=== PATIENT | male | born 1945 | race Caucasian/White ===

== ENCOUNTER → 2017-03-06 | Day surgery (SDC) | payer OTHER, BC ==
[2017-02-06 12:38] VITALS: Ht 175.3 cm; Wt 83.2 kg
[~2017-03-06] VITALS: Ht 175.3 cm; Wt 83.2 kg
[~2017-03-06] MED LIST: 500ML BSS 0.3ML EPI 1:1000PF IRRIG ONE; ACETAMINOPHEN 325 MG TAB PO PRN; AMVISC PLUS 0.8ML SYRINGE INT OCU ONE; ASPI-461 PO; ATOR-54 PO; ATROPINE SULFATE 0.1 MG/ML 5ML SYR IV PRN; BRIMONIDINE TART 0.2% OP SOLN PER DROP CHARGE ONE; BSS FLUSH ONE; CARV6.25 PO; ENDOCOAT 0.85ML SYRINGE INT OCU ONE; EpHEDrine SULFATE INJ 50 MG/ML AMP IV PRN; EpINEphrine INJ 1MG/ML AMP 1 MG/ML AMP ONE; IMDSR/30 PO; LACTATED RINGER'S 1000ML 500 ML IV SCH; LEVO100T PO; LIDOCAINE 4% OP SOLN DROP CHARGE ONE; LIDOCAINE 4% OP SOLN DROP CHARGE OPR SCH; LIDOCAINE HCL 1% MPF 2 ML VIAL ONE; MIDAZOLAM HCL 1 MG/ML 2ML VIAL ONE; MOXIFLOXACIN OPH SOLN PER DROP CHARGE ONE; MULT-351 PO; MULTCAP33 PO; NITR0.4S UT; OMEG120013 PO; ONDANSETRON INJ 2 MG/ML 2 ML VIAL IV PRN; POVIDONE-IODINE OP SOLN 30 ML BTL ONE; PROPARACAINE 0.5% OP SOLN PER DROP CHARGE OPR SCH; PROPARACAINE HCL 0.5% OP SOLN 15 ML BTL OPR ONE; TOBRAMYCIN/DEXAMETHASONE OPH OINT PER APPLN CHARGE ONE
[2017-03-06] MEDS: PHENYLEPHRINE HCL 2.5% OP SOLN PER DROP CHARGE OPR SCH ×2 (09:57→10:02)
[2017-03-06] MEDS: TROPICAMIDE 1% OP SOLN PER DROP CHARGE OPR SCH ×2 (09:58→10:03)
[2017-03-06] MEDS: CYCLOPENTOLATE HCL 1% OP SOLN PER DROP CHARGE OPR SCH ×2 (09:59→10:04)
[2017-03-06] MEDS: KETOROLAC 0.5% OP SOLN PER DROP CHARGE OPR SCH ×2 (10:00→10:05)
[2017-03-06] MEDS: MOXIFLOXACIN OPH SOLN PER DROP CHARGE OPR SCH ×2 (10:01→10:15)
--- NOTE | 2017-03-06 10:33 | History & Physical Bridge - [place] ---
H&P Re-Evaluation Bridge Note: I have examined the patient, reviewed the History & Physical and in the interval since the performance of the History & Physical I have noted the following changes of clinical significance: No changes noted
--- NOTE | 2017-03-06 11:34 | [facility] Post Operative Brief Note ---
Immediate Operative Summary Operative Date Mar 06, 2017. Pre-Operative Diagnosis Cataract and astigmatism right eye Post-Operative Diagnosis Same as pre-op Procedure(s) Performed Right Cataract Phacoemulsification With Intraocular Lens Implant with femtosecond laser and toric lens Surgeon Appetizer Packer Surgeon(s) None Estimated Blood Loss Zero Findings cataract right eye Specimens None Anesthesia local with sedation Complication(s) None Disposition Recovery Room / PACU
--- NOTE | 2017-03-06 11:36 | Discharge Instructions-SurgCtr ---
Discharge Instructions Date of Service Mar 06, 2017. Visit Reason for Visit: Right Cataract Discharge Discharge Diagnosis / Problem: cataract right eye Discharge Goals Goal(s): Improve function Activity Recommendations Activity Limitations: per Instructions/Follow-up section Lifting Limitations: no more than 5 pounds Anesthesia . Post Anesthesia Instructions: If you have had General Anesthesia or IV Sedation: * Do not drive today. * Resume driving when surgeon permits. * Do not make important decisions or sign legal documents today. * Call surgeon for: 1. Temperature elevations greater than 101 degrees F. 2. Uncontrollable pain. 3. Excessive bleeding. 4. Persistent nausea and vomiting. 5. Medication intolerance (nausea, vomiting or rash). * For nausea and vomiting use only clear liquids such as: tea, soda, bouillon until nausea subsides, then gradually increase diet as tolerated. * If you have any concerns or questions, call your surgeon's office. If physician is unavailable and it is an emergency, call 911 or go to the nearest emergency room. . Instructions / Follow-Up Instructions / Follow-Up ACTIVITY RECOMMENDATIONS: * Light activities * You may walk outside, read, watch television. * Mild irritation and blurred vision are common for the first few days, redness around the white part of the eye is common. MEDICATIONS: Resume previous medications unless instructed otherwise by your surgeon. Eye drops (today and tomorrow): Ofloxacin - one drop in operative eye every 2 hours while awake Prednisolone 1% - one drop in operative eye every 2 hours while awake Prolensa - one drop operative eye 1 times daily SPECIAL CARE INSTRUCTIONS: * If any problems or concerns, please call Dr. Bonds's office at . * Keep plastic shield taped over eye to sleep at night. * Keep plastic shield taped over eye except to administer eye drops. * Keep plastic shield on until office visit the following day. FOLLOW UP VISIT: Follow-up with Dr. Bonds in the [place] office as scheduled. If not already scheduled, please call the office at . Diet Recommendations Home Diet: resume previous diet Procedures Procedures Performed: Right Cataract Phacoemulsification With Intraocular Lens Implant with femtosecond laser and toric lens Pending Studies Studies pending at discharge: no Medical Emergencies . Who to Call and When: Medical Emergencies: If at any time you feel your situation is an emergency, please call 911 immediately. . Non-Emergent Contact Non-Emergency issues call your: Build Master . . "Provider Documentation" section prepared by Brett Bonds. .
[2017-03-06 11:37] VITALS: TEMP 36.6
--- NOTE | 2017-03-06 11:41 | [facility] Operative Report ---
Operative Report Operative Date Mar 06, 2017. Pre-Operative Diagnosis Cataract and astigmatism right eye Post-Operative Diagnosis Same as pre-op Procedure(s) Performed Right Cataract Phacoemulsification With Intraocular Lens Implant with femtosecond laser and toric lens Surgeon Countersinker Balance Screw Hole Surgeon(s) None Estimated Blood Loss Zero Findings cataract right eye Fluids (cc crystalloids) see anesthesia record Specimens None Drains none Anesthesia local with sedation Complication(s) None Disposition Recovery Room / PACU Implants TIFFANIE [id number] 28.5 Indications decreased vision right eye Description of Procedure After informed consent was obtained in the holding area the patient was wheeled back to the femtosecond laser room where the right eye was docked with the laser. The primary incision, capsulorrhexis, and prechop of the lens were performed by the laser. The patient was then taken to the operating room where cardiac monitoring leads and oxygen by nasal cannula was administered by Anesthesia. Gentle IV sedation was given, and the patient's right eye was prepped and draped in usual sterile fashion. A wire lid speculum was placed into the right eye and the operating microscope was swung into position. Using 0.12 forceps and a Supersharp blade a paracentesis port was made 2 o'clock hours away from the 9 o'clock position of the patient's right eye. 1% non-preserved Lidocaine was then injected into the anterior chamber for anesthesia. Endocoat was injected into the anterior chamber. A Zach spatula was then used to enter the clear corneal incision at the 9 o'clock position of the right eye. Amvisc was injected into the anterior chamber and Utrata forceps were used to remove the free floating curvilinear capsulorrhexis. BSS on a hydrodissection cannula was used to hydrodissect the lens nucleus away from the capsular bag. The phacoemulsification handpiece was then used in a stop and chop fashion to remove the lens nucleus. The irrigation and aspiration handpiece was then used to remove the residual cortical material. Amvisc was injected into the capsular bag and anterior chamber and a TIFFANIE [id number] 28.5 Diopter intraocular lens was injected into the capsular bag. Irrigation and aspiration handpiece was used to remove the residual viscoelastic material. The lens was aligned with oliva made in preop along the 15 degree meridian. The wounds were hydrated and noted to be watertight. Resure sealant was placed over the primary incision. The wire lid speculum was removed from the eye. Vigamox, Brimonidine, and TobraDex ointment were placed on the eye and it was shielded. It should be noted that EndoCoat was used extensively during the case to protect the cornea endothelium. DISPOSITION: The patient tolerated the procedure well and was wheeled to the post anesthesia care unit in stable condition. I attest to the content of the Intraoperative Record and any orders documented therein. Any exceptions are noted below. I attest to the content of the Intraoperative Record and any orders documented therein. Any exceptions are noted below.
--- NOTE | 2017-03-06 11:51 | Anesthesia Progress Nt - [facility] ---
Anesthesia Post Op Note Date & Time Mar 06, 2017 at 11:51 Vital Signs Pain Intensity: 0 Vital Signs Past 12 Hours Date Time Temp Pulse Resp B/P (MAP) Pulse Ox O2 Delivery O2 Flow Rate FiO2 03/06/17 11:37 36.6 57 16 143/91 (108) 94 Room Air 03/06/17 11:04 55 16 147/86 95 Room Air 03/06/17 10:58 53 16 141/87 94 Room Air 03/06/17 09:48 36.5 58 16 129/89 (102) 96 Room Air Notes Mental Status: alert / awake / arousable, participated in evaluation Pt Amnestic to Procedure: Yes Nausea / Vomiting: adequately controlled Pain: adequately controlled Airway Patency, RR, SpO2: stable & adequate BP & HR: stable & adequate Hydration State: stable & adequate Anesthetic Complications: no major complications apparent
[2017-03-06 12:05] VITALS: BP 125/81; PULSE 65; O2SAT 97
== END | disposition home or self-care (01) ==
LOC: X.SURG 09:27
PROVIDERS: ATTEND Ophthalmology
DX: H25.11 Age-related nuclear cataract, right eye (principal); H52.201 Unspecified astigmatism, right eye; I25.10 Atherosclerotic heart disease of native coronary artery without angina pectoris; I25.2 Old myocardial infarction; I10 Essential (primary) hypertension; E78.5 Hyperlipidemia, unspecified; E03.9 Hypothyroidism, unspecified; Z79.2 Long term (current) use of antibiotics; Z79.899 Other long term (current) drug therapy; Z95.5 Presence of coronary angioplasty implant and graft

== ENCOUNTER → 2017-03-20 | Day surgery (SDC) | payer OTHER, BC ==
[2017-03-15 10:29] VITALS: Ht 175.3 cm; Wt 83.2 kg
[~2017-03-20] VITALS: Ht 175.3 cm; Wt 83.2 kg
[~2017-03-20] MED LIST changes: +LACTATED RINGER'S 1000ML 1,000 ML IV SCH; -LACTATED RINGER'S 1000ML 500 ML IV SCH; +LIDOCAINE 4% OP SOLN DROP CHARGE OPL SCH; -LIDOCAINE 4% OP SOLN DROP CHARGE OPR SCH; -ONDANSETRON INJ 2 MG/ML 2 ML VIAL IV PRN; +PROPARACAINE 0.5% OP SOLN PER DROP CHARGE OPL SCH; -PROPARACAINE 0.5% OP SOLN PER DROP CHARGE OPR SCH; +PROPARACAINE HCL 0.5% OP SOLN 15 ML BTL OPL ONE; -PROPARACAINE HCL 0.5% OP SOLN 15 ML BTL OPR ONE
[2017-03-20] MEDS: PHENYLEPHRINE HCL 2.5% OP SOLN PER DROP CHARGE OPL SCH ×2 (08:10→08:15)
[2017-03-20] MEDS: TROPICAMIDE 1% OP SOLN PER DROP CHARGE OPL SCH ×2 (08:11→08:16)
[2017-03-20] MEDS: CYCLOPENTOLATE HCL 1% OP SOLN PER DROP CHARGE OPL SCH ×2 (08:12→08:17)
[2017-03-20] MEDS: KETOROLAC 0.5% OP SOLN PER DROP CHARGE OPL SCH ×2 (08:13→08:18)
[2017-03-20] MEDS: MOXIFLOXACIN OPH SOLN PER DROP CHARGE OPL SCH ×2 (08:14→08:26)
--- NOTE | 2017-03-20 09:49 | [facility] Post Operative Brief Note ---
Immediate Operative Summary Operative Date Mar 20, 2017. Pre-Operative Diagnosis Cataract left eye Post-Operative Diagnosis Same as pre-op Procedure(s) Performed Left Cataract Phacoemulsification With Intraocular Lens Implant; Toric Lens Surgeon Ordering Box Operator Surgeon(s) None Estimated Blood Loss Zero Findings Consistent with Post-Op Diagnosis Specimens None Drains None Anesthesia Type MAC Complication(s) none Disposition Accompanied Pt To Recover: no Disposition: Recovery Room / PACU
--- NOTE | 2017-03-20 09:50 | Discharge Instructions-SurgCtr ---
Discharge Instructions Date of Service Mar 20, 2017. Visit Reason for Visit: Cataract Left Eye Discharge Discharge Diagnosis / Problem: cataract left eye Discharge Goals Goal(s): Improve function Activity Recommendations Activity Limitations: per Instructions/Follow-up section Lifting Limitations: no more than 5 pounds Anesthesia . Post Anesthesia Instructions: If you have had General Anesthesia or IV Sedation: * Do not drive today. * Resume driving when surgeon permits. * Do not make important decisions or sign legal documents today. * Call surgeon for: 1. Temperature elevations greater than 101 degrees F. 2. Uncontrollable pain. 3. Excessive bleeding. 4. Persistent nausea and vomiting. 5. Medication intolerance (nausea, vomiting or rash). * For nausea and vomiting use only clear liquids such as: tea, soda, bouillon until nausea subsides, then gradually increase diet as tolerated. * If you have any concerns or questions, call your surgeon's office. If physician is unavailable and it is an emergency, call 911 or go to the nearest emergency room. . Instructions / Follow-Up Instructions / Follow-Up ACTIVITY RECOMMENDATIONS: * Light activities * You may walk outside, read, watch television. * Mild irritation and blurred vision are common for the first few days, redness around the white part of the eye is common. MEDICATIONS: Resume previous medications unless instructed otherwise by your surgeon. Eye drops (today and tomorrow): Ofloxacin - one drop in operative eye every 2 hours while awake Prednisolone 1% - one drop in operative eye every 2 hours while awake Prolensa - one drop operative eye 1 times daily SPECIAL CARE INSTRUCTIONS: * If any problems or concerns, please call Dr. Bonds's office at . * Keep plastic shield taped over eye to sleep at night. * Keep plastic shield taped over eye except to administer eye drops. * Keep plastic shield on until office visit the following day. FOLLOW UP VISIT: Follow-up with Dr. Bonds in the [place] office as scheduled. If not already scheduled, please call the office at . Diet Recommendations Home Diet: resume previous diet Procedures Procedures Performed: Left Cataract Phacoemulsification With Intraocular Lens Implant; Toric Lens Pending Studies Studies pending at discharge: no Medical Emergencies . Who to Call and When: Medical Emergencies: If at any time you feel your situation is an emergency, please call 911 immediately. . Non-Emergent Contact Non-Emergency issues call your: Portfolio Specialist . . "Provider Documentation" section prepared by Brett Bonds. .
[2017-03-20 09:52] VITALS: TEMP 36.2
--- NOTE | 2017-03-20 09:54 | [facility] Operative Report ---
Operative Report Operative Date Mar 20, 2017. Pre-Operative Diagnosis Cataract left eye Post-Operative Diagnosis Same as pre-op Procedure(s) Performed Left Cataract Phacoemulsification With Intraocular Lens Implant; Toric Lens Surgeon Cover Operator Surgeon(s) None Estimated Blood Loss Zero Findings cataract left eye Fluids (cc crystalloids) see anesthesia record Specimens None Drains none Anesthesia local with sedation Complication(s) None Disposition Recovery Room / PACU Implants TIFFANIE [id number] 29.5 Indications decreased vision left eye Description of Procedure After informed consent was obtained in the holding area the patient was wheeled back to the laser room where the left eye was docked with the laser. The femtosecond laser was used to make the primary incision at 3 o'clock, and capsulorrhexis, and the prechop of the lens. The patient was then taken to the operating room where cardiac monitoring leads and oxygen by nasal cannula was administered by Anesthesia. Gentle IV sedation was given, and the patient's left eye was prepped and draped in usual sterile fashion. A wire lid speculum was placed into the left eye and the operating microscope was swung into position. Using 0.12 forceps and a Supersharp blade a paracentesis port was made 2 o'clock hours away from the 3 o'clock position of the patient's left eye. 1% non-preserved Lidocaine was then injected into the anterior chamber for anesthesia. Endocoat was then injected into the anterior chamber. A Zach spatula was then used to enter the shelved clear corneal incision at the 3 o'clock position of the left eye. Amvisc was injected into the anterior chamber and a cystotome and Utrata forceps were used to perform a curvilinear capsulorrhexis. BSS on a hydrodissection cannula was used to hydrodissect the lens nucleus away from the capsular bag. The phacoemulsification handpiece was then used in a stop and chop fashion to remove the lens nucleus. The irrigation and aspiration handpiece was then used to remove the residual cortical material. Amvisc was injected into the capsular bag and anterior chamber and a TIFFANIE [id number] 29.5 Diopter intraocular lens was injected into the capsular bag. Irrigation and aspiration handpiece was used to remove the residual viscoelastic material. The lens was aligned along the 170 degree axis with corneal markings made in preop. The wounds were hydrated and noted to be watertight. The wire lid speculum was removed from the eye. Vigamox, Brimonidine, and TobraDex ointment were placed on the eye and it was shielded. It should be noted that EndoCoat was used extensively during the case to protect the cornea endothelium. DISPOSITION: The patient tolerated the procedure well and was wheeled to the post anesthesia care unit in stable condition. I attest to the content of the Intraoperative Record and any orders documented therein. Any exceptions are noted below. I attest to the content of the Intraoperative Record and any orders documented therein. Any exceptions are noted below.
--- NOTE | 2017-03-20 09:55 | Anesthesia Progress Nt - [facility] ---
Anesthesia Post Op Note Date & Time Mar 20, 2017 at 09:55 Vital Signs Pain Intensity: 0 Vital Signs Past 12 Hours Date Time Temp Pulse Resp B/P (MAP) Pulse Ox O2 Delivery O2 Flow Rate FiO2 03/20/17 09:19 54 20 160/86 94 Room Air 03/20/17 09:15 54 20 145/98 97 Room Air 03/20/17 08:02 36.4 52 16 129/87 (101) 96 Room Air Notes Mental Status: alert / awake / arousable, participated in evaluation Pt Amnestic to Procedure: Yes Nausea / Vomiting: adequately controlled Pain: adequately controlled Airway Patency, RR, SpO2: stable & adequate BP & HR: stable & adequate Hydration State: stable & adequate Anesthetic Complications: no major complications apparent
[2017-03-20 10:18] VITALS: BP 126/77; PULSE 54; O2SAT 96
== END | disposition home or self-care (01) ==
LOC: X.SURG 07:27
PROVIDERS: ATTEND Ophthalmology
DX: H26.9 Unspecified cataract (principal); I10 Essential (primary) hypertension; E78.00 Pure hypercholesterolemia, unspecified; I51.9 Heart disease, unspecified; Z79.82 Long term (current) use of aspirin; Z79.899 Other long term (current) drug therapy